=== PATIENT | male | born 1945 | race Hispanic/Latino ===

== ENCOUNTER 2017-02-17 13:56 | Outpatient (CLI) | payer MEDICARE ==
--- NOTE | 2017-02-17 15:53 | XRay Report ---
XRAY LEFT HIP THREE VIEWS: 02/17/17 13:56:00 CLINICAL: Left hip pain. FINDINGS: No fracture or dislocation. Moderate osteoarthritis with narrowing of the joint space and superior acetabular eburnation. Small osteophytes. Slightly greater osteoarthritis of the right hip. The pelvic bones are intact. Vascular calcifications. Brachytherapy seeds in the prostate and surgical sutures in the lower pelvis. IMPRESSION: Moderate osteoarthritis.
== END 2017-02-17 13:57 | disposition home or self-care (01) ==
LOC: SPVIMAG 13:56
PROVIDERS: ATTEND Orthopaedic Surgery Sports Medicine
DX: M16.0 Bilateral primary osteoarthritis of hip (principal)